=== PATIENT | female | born 1965 | race Caucasian/White ===

== ENCOUNTER 2022-01-07 09:50 | Inpatient (IN) | payer MEDICARE, OTHER ==
[~2022-01-07] VITALS: Ht 167.6 cm; Wt 85.7 kg
--- NOTE | 2022-01-07 10:13 | NUR ---
IV ESTABLIHSED L WRIST 20G. LABS DRAWN AND SENT.
--- NOTE | 2022-01-07 10:45 | NUR ---
PT RETURNED FROM CT
[2022-01-07 10:52] LABS: BASOPHILS % (AUTO) 0.2 % (0.0-2.0); HEMATOCRIT 47 % (33-45); HEMOGLOBIN 15.6 g/dL (11.5-14.8); LYMPHOCYTES # (AUTO) 1.7 K/uL (0.8-4.8); LYMPHOCYTES % (AUTO) 16.5 % (20.0-44.0); MEAN CORPUSCULAR HGB CONC 33 g/dl (31.0-36.0); MEAN CORPUSCULAR VOLUME 97 fL (82-100); MONOCYTES # (AUTO) 0.4 K/uL (0.1-1.30); MONOCYTES % (AUTO) 3.7 % (2.0-12.0); NEUTROPHILS % (AUTO) 79.6 % (43.0-81.0); PLATELET COUNT (AUTO) 325 K/uL (150-450); RED BLOOD CELL COUNT(AUTO) 4.84 MIL/uL (4.0-5.2)
--- NOTE | 2022-01-07 11:00 | NUR ---
[id number] FROM HOME, WEAKNESS AND NUMBNESS TO BILAT HAND/FEET, DIZZY FOREIGN CAR MECHANIC. PLACED ON BED, AAOX4, BREATHING EVEN AND UNLABORED SATURATING AT 97%RA
[2022-01-07 11:12] LABS: ALBUMIN 3.6 g/dL (3.4-5.0); BILIRUBIN,TOTAL 0.2 mg/dL (0.2-1.0); CALCIUM, SERUM 8.9 mg/dL (8.5-10.1); CREATININE 0.9 mg/dL (0.6-1.3); TOTAL PROTEIN, SERUM 7.1 g/dL (6.4-8.2)
[2022-01-07 11:19] LABS: THYROID STIMULATING HORMONE 0.974 uIU/mL (0.358-3.74)
[2022-01-07 11:33] LABS: MAGNESIUM 0.4 mg/dL (1.8-2.4)
[2022-01-07] MEDS ORDERED: Magnesium 1GM/D5W 100ML PREMIX 100 ML IV ONE ×2 (12:22→12:55)
[2022-01-07] MEDS: Magnesium 1GM/D5W 100ML PREMIX 100 ML IV SCH ×2 (12:35→14:30)
[2022-01-07] MEDS ORDERED: SUMATRIPTAN SUCCINATE 6 MG/0.5 ML VIAL SQ ONE ×2 (12:50→13:00)
--- NOTE | 2022-01-07 13:18 | NUR ---
MOVE SHEET SUBMITTED.
[2022-01-07] MEDS ORDERED: ACETAMINOPHEN 325 MG TABLET PO PRN (13:30)
[2022-01-07] MEDS ORDERED: Magnesium 1GM/D5W 100ML PREMIX 100 ML IV SCH (13:30)
[2022-01-07] MEDS ORDERED: Z GUARD REMEDY 4 OZ OINT TP PRN (13:30)
[2022-01-07] MEDS ORDERED: MAG HYDROX/AL HYDROX/SIMETH 30 ML UDC PO PRN (13:30)
[2022-01-07] MEDS ORDERED: IV NS 0.9% 1,000 ML IV PRN (13:30)
[2022-01-07] MEDS ORDERED: MAGNESIUM HYDROXIDE 30 ML UDC PO PRN (13:30)
[2022-01-07] MEDS ORDERED: ONDANSETRON HCL/PF 4 MG/2 ML VIAL IVP PRN (13:30)
[2022-01-07] MEDS ORDERED: ASPI-1169 PO (13:39)
[2022-01-07] MEDS ORDERED: PANT40TA49 PO (13:39)
[2022-01-07] MEDS ORDERED: SERT50TA12 PO (13:39)
[2022-01-07] MEDS ORDERED: ZOLP5TAB8 PO (13:39)
[2022-01-07] MEDS ORDERED: ROSU10TA29 PO (13:39)
[2022-01-07] MEDS ORDERED: FLUT1DIS INH (13:39)
--- NOTE | 2022-01-07 13:39 | NUR ---
SWAB FOR COVID19 SENT TO LAB
[2022-01-07 15:00] VITALS: BP 145/85
[2022-01-07] MEDS ORDERED: ZOLPIDEM TARTRATE 5 MG TABLET PO PRN (15:30)
--- NOTE | 2022-01-07 15:37 | NUR ---
GOT BED 304-1
--- NOTE | 2022-01-07 15:56 | NUR ---
report given to nan rn. awaiting transfer to floor.
[2022-01-07] MEDS ORDERED: BUDESONIDE RESPULE INH 0.5 MG/2 ML AMPUL.NEB NEB PRN (16:30)
[2022-01-07] MEDS ORDERED: ALBUTEROL FS 2.5 MG/3 ML VIAL.NEB NEB PRN ×2 (16:30)
--- NOTE | 2022-01-07 16:30 | NUR ---
ADMISSION NOTE Received patient from ER via gurney. Report given by BERNADETTE Dick. Patient is A/O x 4, able to make needs known. On room air, breathing evenly and unlabored. No SOB or s/s of distress noted. Patient oriented to room and how to use the call light. IV access on LAC #20, NS hooked to run at 75 ml/hr. VS taken as follows: BP 103/67, HR 79, RR 18, Temp 98.3, SPO2 96%. Skin assessment done, multiple mosquito bites noted, eczema on bilateral elbows noted as well. Lungs clear on auscultation. Bowel sound present x 4. Safety precautions in place: bed in low, locked position; siderails up x 2; call light within reach. Will continue to monitor.
[2022-01-07] MEDS ORDERED: CALCIUM CARBONATE 500 MG TAB.CHEW PO ONE (17:00)
[2022-01-07] MEDS ORDERED: TRAMADOL HCL 50 MG TABLET PO ONE (19:30)
--- NOTE | 2022-01-07 19:48 | NUR ---
RN NOTE Patient complained of pain on both legs, Bev Villarreal NP notified and ordered Tramadol 50 mg x 1. MD aware of patient's allergy to codeine.
--- NOTE | 2022-01-07 19:55 | NUR ---
MS RN CLOSING NOTE Patient in bed, resting. A/O x 4, able to make needs known. On room air, breathing evenly and unlabored. No SOB or s/s of distress noted. IV access on LAC #20 infusing NS at 75 ml/hr. All needs attended to. Due meds given. Safety precautions maintained: bed in low, locked position; siderails up x 2; call light within reach. Will endorse to night order selector nurse for WOO.
--- NOTE | 2022-01-07 20:07 | NUR ---
received in bed a/o x4 c/o legs pain md burns made aware pt made aware md was notified waiting for response resp even and unlabored
[2022-01-07] MEDS ORDERED: ONDANSETRON HCL/PF 4 MG/2 ML VIAL IV PRN (20:30)
[2022-01-07] MEDS ORDERED: BACLOFEN (10 MG) 10 MG TABLET PO PRN (23:30)
--- NOTE | 2022-01-08 00:32 | NUR ---
patient sitting in the chair at the bedside stated the Baclofen didn't help (order obtained from MD Parson earlier when the given UTRUM didn't help the pain...she requested Morphine and MD Parson stated no) patient ambulates in the room steady gait. at 00:15 she stated she was going AMA to go home and get in the bath tub with Hot water and her heating pad, son to come pick her up Arm band removed and the right saline lock removed paper signed spkoe to her about leaving and best to stay to find out what is the problem and for her safety she stated she will go to [facility] tomorrow bilateral legs warm to touch and PPP no swelling latest MG 3.0 01/07 nable to convince her to stay tonight
[2022-01-08] MEDS ORDERED: PANTOPRAZOLE 40 MG TABLET.DR PO SCH (07:30)
[2022-01-08] MEDS ORDERED: ASPIRIN 81 MG TAB.CHEW PO SCH (09:00)
[2022-01-08] MEDS ORDERED: SERTRALINE HCL 50 MG TABLET PO SCH (09:00)
[2022-01-08] MEDS ORDERED: ATORVASTATIN 10 MG TABLET PO SCH (09:00)
== END 2022-01-08 00:30 | disposition left against medical advice (07) | DRG 641 ==
LOC: ER 09:59 → TELE-TD 16:07 → MED 16:29
PROVIDERS: ADMIT Nurse Practitioner Acute Care; ATTEND Nurse Practitioner Acute Care
DX: E83.42 Hypomagnesemia (principal); R20.2 Paresthesia of skin; I10 Essential (primary) hypertension; E78.5 Hyperlipidemia, unspecified; Z88.5 Allergy status to narcotic agent; Z79.51 Long term (current) use of inhaled steroids; Z79.82 Long term (current) use of aspirin; Z79.899 Other long term (current) drug therapy; K21.9 Gastro-esophageal reflux disease without esophagitis; M79.7 Fibromyalgia; J44.9 Chronic obstructive pulmonary disease, unspecified; F41.9 Anxiety disorder, unspecified; F32.9 Major depressive disorder, single episode, unspecified; Z68.30 Body mass index [BMI] 30.0-30.9, adult; E66.9 Obesity, unspecified; F17.210 Nicotine dependence, cigarettes, uncomplicated
CPT/HCPCS: 36415; 70450-TC; 80053-TC; 82550-TC; 83735-TC; 84439-TC; 84443-TC; 85025-TC; 87081-TC; C9803; G0378; J2405; J3030; J3475; J7030